=== PATIENT | male | born 1970 | race Caucasian/White ===

== ENCOUNTER → 2019-04-26 14:21 | Outpatient (CLI) | payer OTHER, SELFPAY ==
--- NOTE | 2019-04-26 14:26 | US_ITS ---
PROCEDURE: US THYROID CLINICAL INDICATION: THYROID NODULE Enlarged thyroid gland COMPARISON: No exams were available for comparison FINDINGS: Right lobe: 4.5 x 1.6 x 2 cm Left lobe: 4.3 x 1.7 x 2.1 cm Isthmus: Thickened at 7 mm Additional findings: Homogeneous echogenicity. No discrete nodule is evident IMPRESSION: Enlarged thyroid gland. No discrete nodule apparent Dictated by: Kenan Bella MD 04/26/2019 16:37 Electronically signed by Kenan Bella MD in [place] 04/26/2019 16:37
== END ==
PROVIDERS: PCP Family Medicine; Visit Provider Nurse Practitioner
DX: E04.1 Nontoxic single thyroid nodule (principal)
CPT/HCPCS: 76536

== ENCOUNTER → 2019-05-06 12:27 | Outpatient (CLI) | payer OTHER, SELFPAY | PROVIDERS: PCP Nurse Practitioner; Visit Provider Nurse Practitioner | DX: I10 Essential (primary) hypertension; R06.83 Snoring; G47.33 Obstructive sleep apnea (adult) (pediatric) | CPT/HCPCS: 95806 ==

== ENCOUNTER → 2019-09-23 16:53 | Outpatient (CLI) | payer OTHER, SELFPAY ==
--- NOTE | 2019-09-23 | CT_ITS ---
PROCEDURE: CT ABDOMEN PELVIS WO CON CLINICAL INDICATION: Hematuria, low back pain COMPARISON: ABWWO CT ABD W/WO CONTRAST from 10/10/2015 TECHNIQUE: Axial images obtained with sagittal and coronal reformats. All CT scans at the facility use one or more dose reduction, viz: automated exposure control, ma/kV adjustment per patient size (including targeted exams where dose is matched to indication, i.e. head), or iterative reconstruction technique. FINDINGS: LOWER THORAX: No acute finding ABDOMEN & PELVIS: The liver, spleen, adrenal glands, and pancreas have unremarkable appearance. There is some slight increased density of the gallbladder which could be related underlying sludge and/or stones. There is a 3.6 cm right renal cyst. No renal or ureteral calculi. No hydronephrosis. Urinary bladder is contracted with slightly thickened wall. There are few small peripancreatic and periportal lymph nodes. No evidence of appendicitis. There are few colonic diverticula but no evidence of diverticulitis. No abnormal fluid collection. No acute bony findings. IMPRESSION: 1. No acute finding. No renal or ureteral calculi. 2. 3.6 cm right renal cyst 3. Slight increased density of the gallbladder posteriorly which could be due to underlying sludge or small non opaque stones and may better be evaluated with gallbladder ultrasound if clinically warranted Dictated by: Kenan Bella MD 09/23/2019 17:18 Electronically signed by Kenan Bella MD in [place] 09/23/2019 17:18
== END ==
PROVIDERS: PCP Family Medicine; Visit Provider Family Medicine
DX: R10.9 Unspecified abdominal pain (principal); R31.0 Gross hematuria; M54.5 Low back pain
CPT/HCPCS: 74176

== ENCOUNTER → 2020-10-24 12:47 | Outpatient (CLI) | payer OTHER, SELFPAY ==
--- NOTE | 2020-10-24 13:21 | XR_ITS ---
PROCEDURE: XR CHEST PORTABLE CLINICAL HISTORY: COVID TESTING COMPARISON: No exams were available for comparison FINDINGS: The cardiomediastinal silhouette and pulmonary vascularity are within normal limits. There is patchy density in the left lung base medially. This could be due to an area of pericardial fat pad or patchy area of infiltrate. No previous exams are available for comparison. The remaining lungs are clear No acute bony abnormalities. IMPRESSION: Patchy density left lung base which may be due to an area ground-glass infiltrate or pericardial fat. Consider follow-up Dictated by: Kenan Bella MD 10/24/2020 14:25 Kenan Bella MD in [place] 10/24/2020 14:25
[2020-10-24 14:32] LABS: Adenovirus,PCR Not Detected (NotDetected); Bordetella Pertussis Not Detected (NotDetected); Chlamydophila Pneumoniae, PCR Not Detected (NotDetected); Coronavirus 19, PCR Not Detected (NotDetected); Coronavirus 229E Not Detected (NotDetected); Coronavirus NL63 Not Detected (NotDetected); Coronavirus OC43 Not Detected (NotDetected); Coronovirus HKU1,PCR Not Detected (NotDetected); Human Metapneumovirus Not Detected (NotDetected); Influenza A, PCR Not Detected (NotDetected); Influenza AH1, 2009 Not Detected (NotDetected); Influenza AH1, PCR Not Detected (NotDetected); Influenza AH3,PCR Not Detected (NotDetected); Influenza B, PCR Not Detected (NotDetected); Mycoplasma Pneumoniae, PCR Not Detected (NotDetected); Parainfluenza 1, PCR Not Detected (NotDetected); Parainfluenza 2, PCR Not Detected (NotDetected); Parainfluenza 3, PCR Not Detected (NotDetected); Parainfluenza 4, PCR Not Detected (NotDetected); Rhinovirus/Enterovirus Not Detected (NotDetected)
[2020-10-24 14:47] LABS: Basophils # 0.1 K/mm3 (0-0.2); Basophils % 0.9 % (0.1-2.0); Eosinophils # 0.2 K/mm3 (0.0-0.4); Eosinophils % 2.3 % (0.1-12.0); Hematocrit 49.4 % (42.0-52.0); Hemoglobin 16.7 g/dL (14.1-18.0); Lymphocytes # 2.8 K/mm3 (0.7-4.5); Lymphocytes % 30.1 % (10-50); Mean Corpuscular HGB Conc 33.8 g/dL (31.8-35.4); Mean Corpuscular Volume 97.5 fl (80-94); Mean Platelet Volume 8.2 fl (7.4-10.4); Monocytes # 0.5 K/mm3 (0.1-1.0); Monocytes % 5.3 % (1.7-9.3); Neutrophils # 5.8 K/mm3 (1.8-7.8); Neutrophils % 61.3 % (37.0-80.0); Platelet Count 282 K/mm3 (142-424); Red Blood Count 5.07 M/mm3 (4.60-6.20); Red Cell Distribution Width 13.4 % (11.5-17.5); White Blood Count 9.4 K/mm3 (4.8-10.8)
[2020-10-24 15:02] LABS: Strep Scrn Group A (Rapid) Negative (Negative)
[2020-10-24 20:45] LABS: Respiratory Syncytial Virus Detected (NotDetected)
== END ==
PROVIDERS: PCP Nurse Practitioner; Visit Provider Nurse Practitioner
DX: Z20.822 Contact with and (suspected) exposure to COVID-19 (principal); B97.4 Respiratory syncytial virus as the cause of diseases classified elsewhere
CPT/HCPCS: 36415; 71045; 85025; 87430; 87581; 87633; 87798

== ENCOUNTER → 2022-04-19 20:41 | Outpatient (CLI) | payer OTHER, SELFPAY ==
[2022-04-19 21:08] LABS: Influenza A, PCR Not Detected (NotDetected); Influenza B, PCR Not Detected (NotDetected)
[2022-04-19 21:23] LABS: Chloride 107 mmol/L (98-107); Potassium 3.8 mmoL/L (3.5-5.1); Sodium 143 mmol/L (136-145)
[2022-04-19 21:26] LABS: Anion Gap 8.8 mEq/L (5-15); Blood Urea Nitrogen 9 mg/dl (9-20); Calcium 9.4 mg/dl (8.4-10.2); Carbon Dioxide 31 mmol/L (22.0-30.0); Estimated Glomerular Filt Rate 79 ml/min (>60); GFR (African American) 96 ML/MIN (>60); Glucose 101 mg/dl (74-100)
[2022-04-19 21:59] LABS: Coronavirus 19, PCR Detected (NotDetected)
== END ==
PROVIDERS: PCP Nurse Practitioner; Visit Provider Nurse Practitioner
DX: U07.1 COVID-19 (principal); J06.9 Acute upper respiratory infection, unspecified
CPT/HCPCS: 36415; 80048; C9803; U0003; U0005

== ENCOUNTER → 2022-10-02 10:12 | Outpatient (CLI) | payer OTHER, SELFPAY ==
[2022-10-02 18:24] LABS: Alanine Aminotransferase 37 U/L (12-78); Albumin Level 4.6 g/dl (3.5-5.0); Albumin/Globulin Ratio 1.7 (1.1-1.8); Alkaline Phosphatase 65 U/L (38-126); Anion Gap 11.7 mEq/L (5-15); Aspartate Amino Transferase 43 U/L (17-59); Basophils # 0.1 K/mm3 (0-0.2); Basophils % 0.8 % (0.1-2.0); Bilirubin,Total 0.6 mg/dl (0.2-1.3); Blood Urea Nitrogen 10 mg/dl (9-20); Calcium 9.9 mg/dl (8.4-10.2); Carbon Dioxide 27 mmol/L (22.0-30.0); Chloride 107 mmol/L (98-107); Chol/HDL Ratio 6.3 (1-3.5); Cholesterol 250 mg/dl (140-200); Eosinophils # 0.3 K/mm3 (0.0-0.4); Estimated Glomerular Filt Rate 89 ml/min (>60); GFR (African American) 108 ML/MIN (>60); Globulin 2.7 g/dL (1.3-3.2); Glucose 93 mg/dl (74-100); HDL Cholesterol 40 mg/dl (40-60); Hematocrit 53.6 % (42.0-52.0); Hemoglobin 17.2 g/dL (14.1-18.0); Lymphocytes % 31.7 % (10-50); Mean Corpuscular HGB Conc 32.2 g/dL (31.8-35.4); Mean Corpuscular Hemoglobin 33.3 pg (27.0-31.2); Mean Corpuscular Volume 103.6 fl (80-94); Mean Platelet Volume 8.7 fl (7.4-10.4); Monocytes # 0.4 K/mm3 (0.1-1.0); Monocytes % 6.8 % (1.7-9.3); Neutrophils # 3.6 K/mm3 (1.8-7.8); Neutrophils % 56.7 % (37.0-80.0); Platelet Count 258 K/mm3 (142-424); Potassium 4.7 mmoL/L (3.5-5.1); Red Blood Count 5.17 M/mm3 (4.60-6.20); Red Cell Distribution Width 12.7 % (11.5-17.5); Sodium 141 mmol/L (136-145); Total Protein,Serum 7.3 g/dl (6.3-8.2); Triglycerides 243 mg/dl (30-150); VLDL Cholesterol 49 mg/dL (0-40); White Blood Count 6.4 K/mm3 (4.8-10.8)
[2022-10-02 18:36] LABS: Direct LDL Cholesterol 149.14 mg/dL (100-129)
[2022-10-02 18:45] LABS: 25-OH Vitamin D, Total 48.3 ng/mL (30-100)
[2022-10-02 18:55] LABS: Prostate Specific Ag Screen 0.4 ng/ml (0.0-4.0); Thyroid Stimulating Hormone 0.97 uIU/mL (0.465-4.68)
[2022-10-02 18:59] LABS: Hemoglobin A1C 5.3 % (4.0-6.0)
[2022-10-02 19:14] LABS: Vitamin B12 349 pg/mL (239-931)
== END ==
PROVIDERS: PCP Nurse Practitioner; Visit Provider Nurse Practitioner
DX: R07.9 Chest pain, unspecified (principal); K21.9 Gastro-esophageal reflux disease without esophagitis; Z12.5 Encounter for screening for malignant neoplasm of prostate; Z13.1 Encounter for screening for diabetes mellitus; Z13.21 Encounter for screening for nutritional disorder; Z13.220 Encounter for screening for lipoid disorders; G47.33 Obstructive sleep apnea (adult) (pediatric)
CPT/HCPCS: 80053; 80061; 82306; 82607; 83036; 84443; 85025; G0103

== ENCOUNTER → 2022-10-14 10:38 | Outpatient (CLI) | payer OTHER, SELFPAY ==
--- NOTE | 2022-10-14 10:58 | CT_ITS ---
FINAL REPORT CLINICAL HISTORY: lung cancer screening smokes 1 pk per day x 30 yrs FINDINGS: Low-Dose Chest CT CTDI vol (mGy): 2.9 DLP (mGy-cm): 114.64 Axial images were obtained from the lung apex to the mid abdomen by computed tomography. Low-dose protocol was utilized. FINDINGS: CHEST: There is no axillary adenopathy. There is no hilar or mediastinal adenopathy. The heart is proper size. There is no pericardial or pleural effusion. Limited images of the upper abdomen demonstrate a partially imaged right renal mass measuring 35 mm that may represent a cyst. Lung window images demonstrate several calcified granulomas in the right lung. There is no suspicious pulmonary nodule or mass. IMPRESSION: S-modifier: Partially imaged right renal mass may represent a cyst. Consider ultrasound or renal mass protocol CT. Lung RADS category 1S. Recommend 12 month follow-up low-dose chest CT. Reviewed, Interpreted and Dictated by Roque Gomes III, MD Transcribed by Kash Ayers Authenticated and [facility]
--- NOTE | 2022-10-14 10:58 | XR_ITS ---
FINAL REPORT CLINICAL HISTORY: chest pain COMPARISON: 10/24/2020 FINDINGS: Two views of the chest were obtained. The heart size and pulmonary vascularity are within normal limits. The mediastinum is normal. No acute pulmonary abnormality is identified. There is no pneumothorax. The bony thorax is intact. IMPRESSION: No active cardiopulmonary disease. Reviewed, Interpreted and Dictated by Roque Gomes III, MD Transcribed by Karly Tobin Authenticated and . [facility]
--- NOTE | 2022-10-14 11:28 | ECG_ITS ---
APPROVED REPORT [place] Estimator: Conclusion Electronically signed by : Steph Hill, 10/14/2022 18:17:45
== END ==
PROVIDERS: PCP Nurse Practitioner; Visit Provider Nurse Practitioner
DX: Z87.891 Personal history of nicotine dependence (principal); Z12.2 Encounter for screening for malignant neoplasm of respiratory organs; R07.9 Chest pain, unspecified; G47.33 Obstructive sleep apnea (adult) (pediatric)
CPT/HCPCS: 71046; 71271; 93005; 95806

== ENCOUNTER → 2022-10-17 07:03 | Outpatient (CLI) | payer OTHER, SELFPAY ==
--- NOTE | 2022-10-17 07:04 | NM_ITS ---
APPROVED REPORT Exam: Nuclear Stress Test Indication: chest pain..soa Patient Location: Outpatient Stress Tech: Haritha Madsen [place] Tech:Cherelle Quijano GISELERosa RT(R)(N) Ht: 5 ft 9 in Wt: 195 lbs HR: 75 bpm BP: 131/100 mmHg BSA: 2.04 m2 TID: 0.96 BMI: 28.7 History: chest pain..soa Procedure: Patient exercised on Eagle protocol 6:00 minutes and sec, resting heart rate 75 bpm, resting blood pressure 131/100 mmHg, with exercise maximum heart rate achived was 154 bpm which is 91 % of the maximum predicted heart rate and blood pressure was 174/88 mmHg. Test was stopped due to fatigue. Patient denied any complaint of chest pain. Patient has poor exercise capacity, achieved 7.0 METs of workload on treadmill, the blood pressure response to exercise was normal. Cardiac Stress and Resting SPECT Images: Cardiac Stress and Resting SPECT images were obtained using technetium 99m Myoview 31.6 mCi stress and 10.83 mCi at rest. Resting and stress imaging in both supine and prone positions demonstrate a large-sized, moderate, reversible perfusion defect in the inferior and inferoseptal LV tavarez from the base and extending distally towards the inferoapical region. Gated imaging demonstrates low-normal global LV systolic function. There is moderate hypokinesis of the inferior and inferoseptal LV tavarez. LVEF is calculated at 52%. Conclusion: Large-sized, moderate, reversible perfusion defect in the inferior and inferoseptal LV tavarez from the base and extending distally towards the inferoapical region. Findings are suggestive of reversible ischemia. Gated imaging demonstrates low-normal global LV systolic function. There is moderate hypokinesis of the inferior and inferoseptal LV tavarez. LVEF is calculated at 52%. Electronically signed by : Steph Hill, 10/19/2022 15:08:19
--- NOTE | 2022-10-17 10:11 | CA_ITS ---
APPROVED REPORT Exam: Exercise Treadmill Technologist: Haritha Lorenzo, Ht: 5 ft 10 in Wt: 195 lbs BSA: 2.07 m2 HR: 72 bpm BP: 143/91 mmHg Rhythm: NSR Medical History Medications: Omeprazole,,,,, Stress Test Details Test: Eagle HR Resting HR: 75 bpm Max Heart Rate (APMHR): 170 bpm Max HR Achieved: 154 bpm Target HR (85% APMHR): 145 bpm % of APMHR: 91 Recovery HR: 100 bpm HR response to stress: Normal HR response to stress BP Resting BP: 131.0/100 mmHg Max BP: 174/88 mmHg Recovery BP: 125.0/74.0 mmHg BP response to stress: Normal blood pressure response to stress. ECG Resting ECG: NSR, ST-T abnormalities inferolaterally Stress ECG: Pseudo-normalization of baseline abns with normal ST response to exercise Arrhythmia: None Recovery ECG: Return to baseline within 3 minutes or recovery Clinical Exercise duration: 06:00 min Highest Stage Achieved: II Exercise capacity: 7.0 METs Overall Exercise Capacity for Age: Poor Stress ECG Conclusion The patient was able to exercise for a total of 6:00 on Eagle Protocol. He achieved a total of 7 METs. He has a poor exercise capacity compared to age and sex matched peers. He has normal BP and HR response to exercise. Max HR: 154 % of PM: 91% Max BP: 174/88 METs: 7.0 Test stopped due to: SOA, leg fatigue Symptoms: SOA, leg faitgue. No CP. Arrhythmias/Ectopy: None ST-T Changes: Pseudo-normalization of baseline abns with normal ST response to exercise. Return of baseline abns in recovery. Conclusion: Poor exercise capacity. Non-diagnostic GXT due to baseline abnormalities. Myoview images reported separately. Test Summary REST . . . . . . . Sitting REST . . . . . . . Standing REST . . . . . . . Standing REST 03:14 0.0 0.0 75 . 131/100 . . Stage 1 01:00 10.0 1.7 105 . . . . Stage 1 02:00 10.0 1.7 117 . . . . Stage 1 03:00 10.0 1.7 123 . 174/ 88 . . Stage 2 01:00 12.0 2.5 133 . . . . Stage 2 02:00 12.0 2.5 144 . . . . Stage 2 03:00 12.0 2.5 153 . . . Stop exercise at 06:00 RECOVERY 01:00 0.0 0.0 140 . . . . RECOVERY 02:00 0.0 0.0 117 . 167/ 80 . . RECOVERY 03:00 0.0 0.0 104 . 160/ 77 . . RECOVERY 04:00 0.0 0.0 102 . 160/ 77 . . RECOVERY 05:00 0.0 0.0 99 . 125/ 74 . . RECOVERY 05:17 0.0 0.0 98 . 125/ 74 . . Electronically signed by : Steph Hill, 10/19/2022 15:05:13
== END ==
LOC: RAD 07:04
PROVIDERS: PCP Nurse Practitioner; Visit Provider Nurse Practitioner
DX: R07.9 Chest pain, unspecified (principal)
CPT/HCPCS: 78452; 93017; A9502

== ENCOUNTER → 2022-10-27 09:11 | Outpatient (CLI) | payer OTHER, SELFPAY ==
--- NOTE | 2022-10-27 09:16 | CT_ITS ---
FINAL REPORT TECHNIQUE: Axial imaging of the abdomen was obtained after the intravenous administration of contrast. This study was performed with techniques to keep radiation doses as low as reasonably achievable (ALARA). Individualized dose reduction techniques using automated exposure control or adjustment of mA and/or kV according to the patient's size were employed. CLINICAL HISTORY: neoplasm of right kidney COMPARISON: 09/23/2019 FINDINGS: The lung bases are clear. The liver has an unremarkable appearance, without evidence of mass. The gallbladder appears normal without evidence of gallstones. There is no evidence of biliary ductal dilatation. The pancreas appears normal. The spleen size is within normal limits. There is a 14 mm mass in the upper pole of the right kidney which previously measured 12 mm. There is also a 39 mm posterior right renal mass which previously measured 33 mm. These do not demonstrate contrast enhancement and have imaging characteristic consistent with cysts. There is no hydronephrosis. A small umbilical hernia seen containing fat. Appendix is normal. There is no evidence of adenopathy. No abnormal fluid collection is seen. No localized inflammatory processes identified. IMPRESSION: Right renal masses, increased in size from prior exam without contrast enhancement and appearance most consistent with cysts. Reviewed, Interpreted and Dictated by Roque Gomes III, MD Transcribed by Delphine Howard Authenticated and [facility]
== END ==
LOC: RAD 09:12
PROVIDERS: PCP Nurse Practitioner; Visit Provider Nurse Practitioner
DX: D41.01 Neoplasm of uncertain behavior of right kidney (principal)
CPT/HCPCS: 74170; Q9967

== ENCOUNTER 2022-11-05 08:09 | Day surgery (SDC) | payer OTHER, SELFPAY ==
[2022-11-05] VITALS (11 sets, daily range): BP systolic 103–123; BP diastolic 46–86; PULSE 55–75; RESP 17–20; O2SAT 90–98; BMI 26.9
--- NOTE | 2022-11-05 07:05 | IR_ITS ---
APPROVED REPORT Patient Location: Outpatient PROCEDURES Left heart catheterization Left ventriculogram Selective coronary angiogram INDICATION Angina pectoris, Abnormal Myoview, Informed consent was obtained prior to the procedure. COMPLICATIONS None Estimated Blood Loss: Less than 10 mls TECHNIQUE One percent lidocaine used to anesthetize the right anterior aspect of the wrist. The right radial artery was accessed via the Seldinger technique. A 6 Mongolian sheath was placed in the right radial artery. 2.5 mg of Verapamil, 800 mcg of nitroglycerin, 1mg Lidocaine and 5000 U Heparin were given through the arterial sheath. The papa catheter was also used to perform left heart catheterization, left ventriculogram and selective coronary angiogram. At the end of the procedure the sheath was removed good hemostasis was achieved using Traclet band, patient was transferred to the postop holding area in stable condition. ANGIOGRAPHIC RESULTS The left main artery Normal The left anterior descending artery Initially had JF I to JF II flow which improved with subsequent angiographic injections. The proximal portion is normal with remaining LAD being being a small vessel which does not supply the apex. There is no focal stenosis in the LAD itself. The first diagonal artery is moderate and has a mid vessel smooth 30% stenosis along a tortuous bend The circumflex artery Is dominant gives rise to a large ramus intermedius which is normal. The circumflex artery itself has a mid vessel concentric 40 to 50% stenosis followed by an additional 30% stenosis. Initially JF II flow was present down the circumflex artery which improved with subsequent injections The right coronary artery Codominant and normal The MCNEAL ventriculogram reveals Normal 65% The left ventricular end-diastolic pressure Elevated at 20 mmHg IMPRESSION Angiographic evidence of endothelial dysfunction as described above which is the likely etiology for patient's angina Moderate disease in the mid circumflex artery as described above Normal ejection fraction Elevated LVEDP PLAN 1. Recommend treatment of endothelial dysfunction which is almost certainly the etiology for patient's angina 2. Patient is only on 1 antianginal medication. Recommend adding additional antianginal medications 3. Medical management for coronary artery disease 4. LDL less than 55 to be achieved with high intensity statin 5. Avoidance of tobacco products Electronically signed by : Tristan Marcano MD 11/05/2022 11:02:29
[2022-11-05 08:51] LABS: Basophils # 0.1 K/mm3 (0-0.2); Basophils % 0.9 % (0.1-2.0); Eosinophils # 0.3 K/mm3 (0.0-0.4); Eosinophils % 4.3 % (0.1-12.0); Hematocrit 53.9 % (42.0-52.0); Hemoglobin 17.4 g/dL (14.1-18.0); Lymphocytes # 2.2 K/mm3 (0.7-4.5); Lymphocytes % 28.8 % (10-50); Mean Corpuscular HGB Conc 32.4 g/dL (31.8-35.4); Mean Corpuscular Hemoglobin 32.7 pg (27.0-31.2); Mean Platelet Volume 7.6 fl (7.4-10.4); Monocytes # 0.5 K/mm3 (0.1-1.0); Neutrophils # 4.6 K/mm3 (1.8-7.8); Platelet Count 250 K/mm3 (142-424); Red Blood Count 5.34 M/mm3 (4.60-6.20); Red Cell Distribution Width 12.9 % (11.5-17.5); White Blood Count 7.7 K/mm3 (4.8-10.8)
[2022-11-05 09:01] LABS: Chloride 106 mmol/L (98-107); Sodium 140 mmol/L (136-145)
[2022-11-05 09:02] LABS: Potassium 4.1 mmoL/L (3.5-5.1)
[2022-11-05 09:04] LABS: Anion Gap 9.1 mEq/L (5-15); Blood Urea Nitrogen 10 mg/dl (9-20); Carbon Dioxide 29 mmol/L (22.0-30.0); Creatinine Clearance Estimated 118 mL/min (50-200); Estimated Glomerular Filt Rate 89 ml/min (>60); GFR (African American) 108 ML/MIN (>60)
[2022-11-05 09:05] LABS: Calcium 9.7 mg/dl (8.4-10.2); Glucose 102 mg/dl (74-100)
== END 2022-11-05 13:52 | disposition home or self-care (01) ==
PROVIDERS: PCP Nurse Practitioner; Visit Provider Internal Medicine
DX: I25.118 Atherosclerotic heart disease of native coronary artery with other forms of angina pectoris (principal); R94.30 Abnormal result of cardiovascular function study, unspecified; E78.5 Hyperlipidemia, unspecified; R00.0 Tachycardia, unspecified; F17.210 Nicotine dependence, cigarettes, uncomplicated
CPT/HCPCS: 80048; 85025; 93458; 99152; C1725; C1769; J1644; Q9967

== ENCOUNTER → 2022-12-03 09:07 | Outpatient (CLI) | payer OTHER, SELFPAY ==
--- NOTE | 2022-12-03 09:07 | CT_ITS ---
FINAL REPORT TECHNIQUE: The patient was injected with IV contrast. Axial images were obtained through the chest in a PE protocol. 3-D reconstruction images were also performed. Individualized dose reduction techniques using automated exposure control or adjustment of the MA and/or KV according to patient's size were employed. CLINICAL HISTORY: to rule out aneursym FINDINGS: Mediastinal vasculature is adequately opacified. No pulmonary artery filling defects are identified to suggest PE. The ascending aorta measures up to 3.2 cm in diameter. No aneurysmal dilatation is identified. There is no axillary adenopathy. There is no hilar or mediastinal adenopathy. The heart size is normal. There is no pericardial or pleural effusion .No suspicious infiltrate or nodule is identified. IMPRESSION: No aneurysmal dilatation of the ascending aorta. Reviewed, Interpreted and Dictated by Ovi Butt MD Transcribed by Melissa Fernandez Authenticated and [facility]
== END ==
LOC: RAD 09:07
PROVIDERS: PCP Nurse Practitioner; Visit Provider Physician Assistant
DX: I25.10 Atherosclerotic heart disease of native coronary artery without angina pectoris (principal); E78.5 Hyperlipidemia, unspecified; F17.200 Nicotine dependence, unspecified, uncomplicated
CPT/HCPCS: 71275; Q9967

== ENCOUNTER 2023-03-11 11:58 | Day surgery (SDC) | payer OTHER, SELFPAY ==
[2023-01-14 14:20] VITALS: BMI 28.6
[2023-03-11 12:08] VITALS: BP 129/86; PULSE 70; RESP 20; TEMP 36.5; O2SAT 98
[2023-03-11] MEDS: LACTATED RINGERS 1000ML 1,000 ML 100 ML IV (12:15)
--- NOTE | 2023-03-11 12:21 | EXP.ANES.CKL ---
[facility] Disclaimer: The information contained in this section may have been updated after the patient was seen, as this information can be updated by other users. Medical History Abnormal result of cardiovascular function study Abnormal stress test Chest pain GERD (gastroesophageal reflux disease) History of left heart catheterization (LHC) History of left heart catheterization (LHC) Hyperlipidemia Neoplasm of uncertain behavior of right kidney ELENA (obstructive sleep apnea) Personal history of smoking Sinus tachycardia Surgical History Hx of inguinal hernia repair Family History Father Aneurysm Other Family history of diabetes mellitus type II Family history of hyperlipidemia Family history of hypertension Social History Smoking Status: Current every day smoker tobacco type: cigarettes packs per day: 1 alcohol intake: current substance use type: denies use current occupational status: employed Travel in the last 8 weeks: None household members: family housing: house caffeine: Yes [facility] Anesthesia Checklist Patient Identification Patient Identification: Arm Band Structural Data Admitted From: Home Planned Operative Procedure/s: EGD/Colonoscopy Consent for Planned Operative Procedure(s) Verified: Yes Verified Documents: Surgical Consent and History and Physical NPO Status Verified Time NPO: 00:00 Additional verifications Anesthesia Reactions: No Airway Assessment Mallampati Score:: Class II C-Spine Mobility Assessed: Yes TMJ Mobility Assessed: Yes Dentition: Good Dentition Neurological Assessment Level of Consciousness: Awake and Alert Anesthesia Plan Anesthesia Risk discussed: Yes Anesthesia Plan: Verified ASA Class: II Anesthesia Type: MAC
[2023-03-11 12:28] VITALS: O2SAT 97
[2023-03-11 12:55] VITALS: BP 112/64; PULSE 82; RESP 18; TEMP 36.4; O2SAT 94
--- NOTE | 2023-03-11 12:59 | HMH.SCOPE ---
Procedure: Date: 03/11/23 Patient Date of :: 1970 Procedure Performed:: Colonoscopy Indications:: Screening Performing Provider:: Dylan Traore MD Referring Provider:: Berta Mar APRN Sedation:: See RN records Procedure:: After placing the patient in the left lateral decubitus position, the colonoscopy was gently inserted into the rectum and under direct visualization advanced to the cecum which was identified by transillumination in the right lower quadrant, identification of the ileocecal valve, appendiceal orifice, and cecal strap. Color, texture, mucosa, and anatomy of the colon were carefully examined with the scope. Findings:: Anal canal: normal Rectum: Hemorrhoids Sigmoid colon: normal without polyps or inflammatory changes Descending colon: normal without polyps or inflammatory changes Splenic flexure: normal Transverse colon: normal without polyps or inflammatory changes Hepatic flexure: normal Ascending colon: normal without polyps or inflammatory changes Cecum: normal Terminal ileum: not visualized Recommendations:: Repeat colonoscopy in 10 years for screening, sooner if clinically indicated Complications:: none Estimated blood obtained (mL): 0 Colonoscopy Component Colonoscopy Component Was a colonoscopy performed during today's procedure?: Yes Recommended follow up colonoscopy of at least 10 years?: Yes
--- NOTE | 2023-03-11 13:00 | P.PCN_ITS ---
Procedure: Date: 03/11/23 Patient Date of :: 1970 Procedure Performed:: EGD Indications:: Ray's esophagus Performing Provider:: Dylan Traore MD Referring Provider:: Marli Cardozo APRN (Gastroenterology) Sedation:: See RN records Procedure:: The gastroscope was gently passed through the incisoral orifice into the oral cavity and under direct visualization the esophagus was intubated. The endoscope was passed down the esophagus, through the stomach, and into the duodenum. Color, texture, mucosa, and anatomy of the esophagus, stomach, and duodenum were carefully examined with the scope. Findings:: Oropharynx: normal Esophagus: Ray's esophagus. [place] Classification C4M5. Multiple biopsies obtained in 4 quadrant fashion EG Junction: meaured at 40 cm Cardia: normal Fundus: normal Body: normal Antrum: normal Duodenal bulb: normal Duodenum (second and third portion): normal Impression: Ray's esophagus. [place] Classification C4M5 Recommendations:: Await pathology results Continue omeprazole 40 mg once daily Recommend cigarette smoking cessation Repeat EGD in 3 years Complications:: None Estimated blood obtained (mL): 0 Colonoscopy Component Colonoscopy Component Was a colonoscopy performed during today's procedure?: No
[2023-03-11 13:05] VITALS: BP 113/66; PULSE 67; RESP 18; O2SAT 98
[2023-03-11 13:10] VITALS: BP 114/85; PULSE 65; RESP 18; O2SAT 98
[2023-03-11 13:39] VITALS: BP 128/85; PULSE 65; RESP 18; O2SAT 98
== END 2023-03-11 13:49 | disposition home or self-care (01) ==
PROVIDERS: PCP Nurse Practitioner; Visit Provider Internal Medicine
PROC: 0DJ08ZZ Inspection of Upper Intestinal Tract, Via Natural or Artificial Opening Endoscopic (ICD-10-PCS; CPT 43235; principal; 2023-03-11 13:00)
DX: K22.70 Barrett's esophagus without dysplasia (principal); Z12.11 Encounter for screening for malignant neoplasm of colon; K64.8 Other hemorrhoids; K31.A0 Gastric intestinal metaplasia, unspecified
CPT/HCPCS: 43239; 45378

== ENCOUNTER 2024-01-27 11:23 | Outpatient (CLI) | payer OTHER, SELFPAY ==
[2024-01-27 18:39] LABS: Basophils # 0.1 K/mm3 (0-0.2); Basophils % 1.3 % (0.1-2.0); Eosinophils # 0.2 K/mm3 (0.0-0.4); Eosinophils % 3.2 % (0.1-12.0); Hematocrit 52.3 % (42.0-52.0); Hemoglobin 17.1 g/dL (14.1-18.0); Lymphocytes # 1.7 K/mm3 (0.7-4.5); Lymphocytes % 26.9 % (10-50); Mean Corpuscular HGB Conc 32.7 g/dL (31.8-35.4); Mean Corpuscular Hemoglobin 33.8 pg (27.0-31.2); Mean Corpuscular Volume 103.2 fl (80-94); Mean Platelet Volume 8.7 fl (7.4-10.4); Monocytes # 0.5 K/mm3 (0.1-1.0); Monocytes % 8.1 % (1.7-9.3); Neutrophils # 3.8 K/mm3 (1.8-7.8); Neutrophils % 60.6 % (37.0-80.0); Platelet Count 255 K/mm3 (142-424); Red Blood Count 5.07 M/mm3 (4.60-6.20); Red Cell Distribution Width 12.9 % (11.5-17.5); White Blood Count 6.3 K/mm3 (4.8-10.8)
[2024-01-27 19:00] LABS: Alanine Aminotransferase 43 U/L (12-78); Albumin Level 4.4 g/dl (3.5-5.0); Albumin/Globulin Ratio 1.8 (1.1-1.8); Alkaline Phosphatase 61 U/L (38-126); Anion Gap 11.3 mEq/L (5-15); Aspartate Amino Transferase 40 U/L (17-59); Bilirubin,Total 0.5 mg/dl (0.2-1.3); Blood Urea Nitrogen 8 mg/dl (9-20); Calcium 9.7 mg/dl (8.4-10.2); Carbon Dioxide 29 mmol/L (22.0-30.0); Chloride 106 mmol/L (98-107); Chol/HDL Ratio 4.5 (1-3.5); Cholesterol 175 mg/dl (140-200); Estimated Glomerular Filt Rate 89 ml/min (>60); GFR (African American) 108 ML/MIN (>60); Globulin 2.4 g/dL (1.3-3.2); Glucose 77 mg/dl (74-100); HDL Cholesterol 39 mg/dl (40-60); Potassium 4.3 mmoL/L (3.5-5.1); Sodium 142 mmol/L (136-145); Total Protein,Serum 6.8 g/dl (6.3-8.2); Triglycerides 289 mg/dl (30-150); VLDL Cholesterol 58 mg/dL (0-40)
[2024-01-27 19:29] LABS: Prostate Specific Ag Screen 0.3 ng/ml (0.0-4.0); Thyroid Stimulating Hormone 2.07 uIU/mL (0.465-4.68)
[2024-01-27 19:48] LABS: Vitamin B12 236 pg/mL (239-931)
[2024-01-27 19:56] LABS: Hemoglobin A1C 6.2 % (4.0-6.0)
== END 2024-01-27 23:59 | disposition home or self-care (01) ==
LOC: LAB.DROPOF 01-28 15:23
PROVIDERS: PCP Nurse Practitioner; Visit Provider Nurse Practitioner
DX: E78.5 Hyperlipidemia, unspecified (principal); K21.9 Gastro-esophageal reflux disease without esophagitis; G47.33 Obstructive sleep apnea (adult) (pediatric); R60.0 Localized edema; Z13.1 Encounter for screening for diabetes mellitus; Z13.29 Encounter for screening for other suspected endocrine disorder
CPT/HCPCS: 80050; 80053; 80061; 82607; 83036; 84443; 85025; G0103

== ENCOUNTER 2024-02-01 12:51 | Outpatient (CLI) | payer OTHER, SELFPAY ==
--- NOTE | 2024-02-01 12:57 | CA_ITS ---
APPROVED REPORT EXAM: Comprehensive 2D, Doppler, and color-flow Echocardiogram Lurer: Louann Leon CRT Ht: 5 ft 10 in Wt: 212lbs BSA: 2.14 BP: 118/84 mmHg Indications: Peripheral Edema, Hyperlipidemia, smoker, abn gxt, tachycardia 2D Dimensions LA Volume 28.40 mL LA Volume Index 13.27 mL/m2 (M/F) 16-34 M-Mode Dimensions RVDd 2.60 cm (0.9-2.6) LA Diam 3.14 cm (1.9-4.0) LVDd 5.53 cm (3.5-5.7) LVDs 3.82 cm (3.5-5.7) IVSd 1.21 cm (0.6-1.1) PWd 0.78 cm (0.6-1.1) EF (Teich) 58.00% FS 30.90% EDV (Teich) 149.30 mL TAPSE 2.18 (<1.7) ESV (Teich) 62.70 mL LV Diastology E Decel Time 137 (160-240 msec) E/A Ratio 1.03 MED A' 8.60 cm/s LAT A' 8.50 cm/s Aortic Valve AO Peak GR. 4.40 mmHg Mitral Valve MV A Velocity 50.0 (40-130 cm/s) E/A Ratio 1.03 Pulmonary Valve PV Peak Velocity 128.0 (50-150 cm/s) Tricuspid Valve TR P. Velocity 174.00 cm/s RAP Estimate 10.00 mmHg RVSP 22.20 mmHg Left Ventricle The left ventricle is normal size. The left ventricular systolic function is normal. The left ventricular ejection fraction is within the normal range. There is normal left ventricular wall thickness. There is normal LV segmental wall motion. The left ventricular diastolic function is normal. LVEF is 55%. Right Ventricle Right ventricle is mildly dilated. The right ventricular systolic function is normal. Atria The left atrium size is normal. The right atrium size is normal. There is no Doppler evidence of interatrial shunt. The aortic valve opens well. Aortic Valve There is no aortic valvular stenosis. No aortic regurgitation is present. Mitral Valve The mitral valve is normal in structure. No evidence of mitral valve stenosis. There is no mitral valve regurgitation noted. Tricuspid Valve The tricuspid valve leaflets are thin and pliable. Trace tricuspid regurgitation. There is insufficient TR jet to estimate RVSP. Pulmonic Valve The pulmonary valve is normal in structure. Trace pulmonic regurgitation. Great Vessels The aortic root is normal in size. The ascending aorta is normal in size. IVC is normal in size and collapses >50% with inspiration. Pericardium There is no pericardial effusion. Other Information Study Quality: Adequate Conclusion Normal biventricular systolic function. Mild RV dilation. No significant valvular stenosis or regurgitation. Electronically signed by : Steph Hill MD 02/09/2024 11:37:41
== END 2024-02-01 23:59 | disposition home or self-care (01) ==
PROVIDERS: PCP Nurse Practitioner; Visit Provider Nurse Practitioner
DX: R60.0 Localized edema (principal)
CPT/HCPCS: 93306

== ENCOUNTER 2024-02-12 10:53 | Outpatient (CLI) | payer OTHER, SELFPAY ==
--- NOTE | 2024-02-12 10:54 | CT_ITS ---
FINAL REPORT TECHNIQUE: Axial CT images of the chest were obtained without contrast. Low-dose protocol was utilized. This study was performed with techniques to keep radiation doses as low as reasonably achievable (ALARA). Individualized dose reduction techniques using automated exposure control or adjustment of mA and/or kV according to the patient's size were employed. CLINICAL HISTORY: lung cancer screening, current smoker for 25 years, smokes less than 1ppd COMPARISON: 10/14/2022 FINDINGS: CT CHEST WITHOUT, LOW DOSE SCREENING CT Di Vol: 2.90 mGy DLP: 104.20 mGy*cm There is no axillary, mediastinal, or hilar adenopathy. The heart size is normal. There is no pleural or pericardial effusion. The lung windows show no suspicious mass or nodule. Limited images of the upper abdomen demonstrate an exophytic lesion arising from the upper pole of the right kidney, likely cyst. Otherwise, no acute findings. IMPRESSION: LR Category 1: 12 month follow-up low-dose chest CT is recommended per Fleischner criteria. Reviewed, Interpreted and Dictated by Amber Mishra MD Transcribed by Shauna Shields Authenticated and [facility]
== END 2024-02-12 23:59 | disposition home or self-care (01) ==
LOC: RAD 10:54
PROVIDERS: PCP Nurse Practitioner; Visit Provider Nurse Practitioner
DX: Z12.2 Encounter for screening for malignant neoplasm of respiratory organs (principal); F17.210 Nicotine dependence, cigarettes, uncomplicated
CPT/HCPCS: 71271

== ENCOUNTER 2024-10-24 10:31 | Outpatient (CLI) | payer OTHER, SELFPAY ==
[2024-10-24 15:12] LABS: Hematocrit 50.2 % (42.0-52.0); Hemoglobin 16.1 g/dL (14.1-18.0); Immature Granulocytes % 0.3 %; Mean Corpuscular HGB Conc 32.1 g/dL (31.8-35.4); Mean Corpuscular Hemoglobin 31.7 pg (27.0-31.2); Mean Corpuscular Volume 98.8 fl (80-94); Nucleated Red Blood Cells % 0 %; Platelet Count 280 K/mm3 (142-424); Red Blood Count 5.08 M/mm3 (4.60-6.20); Red Cell Distribution Width-SD 48.0 fL; White Blood Count 14.7 K/mm3 (4.8-10.8)
[2024-10-24 15:39] LABS: Alanine Aminotransferase 46 U/L (12-78); Albumin Level 4.4 g/dl (3.5-5.0); Albumin/Globulin Ratio 1.4 (1.1-1.8); Alkaline Phosphatase 75 U/L (38-126); Anion Gap 10.2 mEq/L (5-15); Aspartate Amino Transferase 49 U/L (17-59); Bilirubin,Total 0.8 mg/dl (0.2-1.3); Blood Urea Nitrogen 9 mg/dl (9-20); Calcium 9.5 mg/dl (8.4-10.2); Carbon Dioxide 30 mmol/L (22.0-30.0); Chloride 104 mmol/L (98-107); Cholesterol 164 mg/dl (140-200); Creatinine,Serum 0.80 mg/dl (0.66-1.25); Estimated Glomerular Filt Rate 102 ml/min (>60); GFR (African American) 123 ML/MIN (>60); Globulin 3.1 g/dL (1.3-3.2); Glucose 84 mg/dl (74-100); HDL Cholesterol 40 mg/dl (40-60); Potassium 4.2 mmoL/L (3.5-5.1); Sodium 140 mmol/L (136-145); Total Protein,Serum 7.5 g/dl (6.3-8.2); Triglycerides 196 mg/dl (30-150)
[2024-10-24 16:09] LABS: Prostate Specific Ag, Diagnost 0.286 ng/ml (0.0-4.0); Thyroid Stimulating Hormone 1.82 uIU/mL (0.465-4.68)
[2024-10-24 16:26] LABS: Hepatitis C Ab Qual. W/ RFX NEGATIVE (Negative)
[2024-10-24 16:33] LABS: Vitamin B12 > 1000 pg/mL (239-931)
[2024-10-24 21:46] LABS: Hemoglobin A1C 5.7 % (4.0-6.0)
[2024-10-25 05:12] LABS: Hepatitis B Surface Antigen Negative (Negative)
[2024-10-25 08:17] LABS: Testosterone,Total 238 ng/dL (264-916)
--- OUTSIDE RECORDS SUMMARY | 2024-10-25 10:49 | XMS_ITS | Clinical Summary ---
Author Organization [facility] Address [address] [place] [address] Care Team Providers Care Fur Joiner Name Role Phone Berta Mar CHIEF YEOMAN Primary Care Provider [phone] Allergies No known active allergies Medications albuterol 108 (90 Base) MCG/ACT inhaler Inhale 2 puffs every 4 (four) hours if needed for wheezing or shortness of breath. 1 each Active Social History Tobacco Use Types Packs/Day Years Used Date Smoking Tobacco: Never Assessed Sex and Gender Information Value Date Recorded Sex Assigned at Not on file Legal Sex Male 11:15 AM EDT Gender Identity Not on file Sexual Orientation Not on file Last Filed Vital Signs Vital Sign Reading Time Taken Comments Blood Pressure 122/80 01/11/2024 3:24 PM EDT Pulse 104 01/11/2024 3:24 PM EDT Temperature 36.8 C (98.2 F) 01/11/2024 3:24 PM EDT Respiratory Rate 18 01/11/2024 3:24 PM EDT Oxygen Saturation 95% 01/11/2024 3:24 PM EDT Inhaled Oxygen Concentration - - Weight 90.7 kg (200 lb) 01/11/2024 11:24 AM EDT Height - - Body Mass Index - - Plan of Treatment Health Maintenance Due Date Last Done Comments UKY-Depression Screening 1972 UKY-HIV Screening 1972 UKY-Hepatitis C Screening 1972 [facility]Y-/Child/Adol SDOH Screenings 1972 UKY- SDOH Screenings 02/07/1990 UKY-Adult SDOH Screenings 02/07/1990 UKY-Hepatitis B Vaccines (1 of 3 - 19+ 3-dose series) 02/07/1991 UKY-Pneumococcal Vaccine: 50 + Years (1 of 2 - PCV) 02/07/1991 CT Colonography 02/07/2017 Colonoscopy 02/07/2017 FIT-DNA 02/07/2017 FIT 02/07/2017 FOBT 02/07/2017 Sigmoidoscopy 02/07/2017 UKY-Colorectal Cancer Screening 02/07/2017 UKY-Zoster Vaccines (1 of 2) 02/07/2022 [id number]-OJEND-49 Vaccine (4 - season) 2023 02/25/2022, 06/12/2020, 05/15/2020 UKY-Influenza Vaccine (#1) 2024 UKY-DTaP,Tdap,and Td Vaccine s (2 - Td or Tdap) 11/26/2027 11/25/2017 UKY-Hepatitis A Vaccines Aged Out 019, 11/25/2017 No longer eligible based on patient's age to complete this topic HPV Vaccines Aged Out No longer eligi ble based on patient's age to complete this topic UKY-HIB Vaccines Aged Out No longer e ligible based on patient's age to complete this topic UKY-IPV Vaccines Aged Out No longer e ligible based on patient's age to complete this topic UKY-Rotavirus Vaccines Aged Out No lo nger eligible based on patient's age to complete this topic Insurance Care Teams Fur Joiner Relationship Specialty Start Date End Date Berta Mar APRN [address] [place] [address] PCP - General 01/11/24
--- OUTSIDE RECORDS SUMMARY | 2024-10-25 10:49 | XMS_ITS | Clinical Summary ---
Author Organization [facility] Address [address] [facility] [place] [address] [place] [address] Phone Care Team Providers Care Candle Wicker Name Role Phone Sandrita Arguello Primary Care Provider [phone] Allergies No known active allergies Medications methylPREDNISolo ne (MEDROL DOSPACK) 4 mg Oral Tablets, Dose PackIndications: Left knee pain, unspecified chronicity follow package directions 21 Tablet 3 Active Social History Tobacco Use Types Packs/Day Years Used Date Smoking Tobacco: Never Assessed Sex and Gender Information Value Date Recorded Sex Assigned at Not on file Legal Sex Male 7:36 AM EDT Gender Identity Not on file Sexual Orientation Not on file Plan of Treatment Health Maintenance Due Date Last Done Comments Annual Wellness Exam 02/07/1975 Hepatitis B Vaccine (1 of 3 - 19+ 3-dose series) 02/07/1991 Cologuard 02/07/2017 Colon Cancer Screening 02/07/2017 Colonoscopy 02/07/2017 FIT 02/07/2017 Sigmoidoscopy 02/07/2017 Virtual Colonography 02/07/2017 Pneumococcal Vaccine 50+ (1 of 1 - PCV) 02/07/2022 Zoster (1 of 2) 02/07/2022 COVID-19 Vaccine (2023-2 5 season) 2023 02/25/2022, 06/12/2020, 05/15/2020 Influenza Vaccine (#1) 2024 DTaP/TDaP/Td (2 - Td or Tdap) 11/26/2027 11/25/2017 Meningococcal B Vaccine Aged Out No l onger eligible based on patient's age to complete this topic Insurance wally [address] CHOICE PLUS CHOICE PLUS Care Teams Candle Wicker Relationship Specialty Start Date End Date Sandrita Arguello [address] [facility] [address] [facility] [address] PCP - General Family Medicine 10/06/14
== END 2024-10-24 23:59 | disposition home or self-care (01) ==
LOC: LAB.DROPOF 10-25 10:42
PROVIDERS: PCP Nurse Practitioner; Visit Provider Nurse Practitioner
DX: E78.5 Hyperlipidemia, unspecified (principal); K21.9 Gastro-esophageal reflux disease without esophagitis; R73.01 Impaired fasting glucose; Z12.5 Encounter for screening for malignant neoplasm of prostate; R68.82 Decreased libido; Z11.59 Encounter for screening for other viral diseases; Z80.42 Family history of malignant neoplasm of prostate; Z79.899 Other long term (current) drug therapy
CPT/HCPCS: 80053; 80061; 82607; 83036; 84153; 84403; 84443; 85025; 86803; 87340; 87389

== ENCOUNTER 2025-01-04 13:19 | Outpatient (CLI) | payer OTHER, SELFPAY ==
[2025-01-04 08:47] VITALS: BMI 30.1
--- NOTE | 2025-01-04 13:45 | XR_ITS ---
FINAL REPORT CLINICAL HISTORY: preoperative orders FINDINGS: No acute pulmonary density is evident. There is no evidence of effusion or other pleural disease. The mediastinum has a normal appearance. The cardiac silhouette is unremarkable. IMPRESSION: Unremarkable chest exam. Reviewed, Interpreted and Dictated by Frances Chou MD Transcribed by Melissa Fernandez Authenticated and [facility] [place] [place]
--- NOTE | 2025-01-04 14:04 | ECG_ITS ---
APPROVED REPORT Exam: Resting ECG HR:83 bpm ECG Measurements Heart Rate 83 AXES WY 146 P 52 QRSd 101 QRS 48 QT 375 T 58 QTc 415 Conclusion SINUS RHYTHM INCOMPLETE RIGHT BUNDLE BRANCH BLOCK [90+ ms QRS DURATION, TERMINAL R IN V1/V2, 40+ ms S IN I/aVL/V4/V5/V6] NONSPECIFIC T-WAVE ABNORMALITY BORDERLINE ECG UNCONFIRMED REPORT Electronically signed by : Ephraim Yuen MD 01/06/2025 08:49:11
--- OUTSIDE RECORDS SUMMARY | 2025-01-04 14:04 | XMS_ITS | Clinical Summary ---
Author Organization [facility] Address [facility] [place] [place] [address] [place] [address] Phone Care Team Providers Care Social Work Program Coordinator Name Role Phone Sandrita Arguello Primary Care Provider [phone] Allergies No known active allergies Medications methylPREDNISolo [...] Zoster (1 of 2) 02/07/2022 COVID-19 Vaccine (4 - 2024-2 6 season) 2024 02/25/2022, 06/12/2020, 05/15/2020 Influenza Vaccine (#1) 2024 DTaP/TDaP/Td (2 - Td or Tdap) 11/26/2027 11/25/2017 Meningococcal B Vaccine Aged Out No l onger eligible based on patient's age to complete this topic Insurance wally [address] CHOICE PLUS CHOICE PLUS Care Teams Social Work Program Coordinator Relationship Specialty Start Date End Date Sandrita Arguello [address] [facility] [address] [facility] [address] PCP - General Family Medicine 10/06/14
--- OUTSIDE RECORDS SUMMARY | 2025-01-04 14:04 | XMS_ITS | Clinical Summary ---
Author Organization [facility] Address [address] [place] [address] Care Team Providers Care Cheesemaking Laborer Name Role Phone Berta Mar CURTAIN INSPECTOR Primary Care Provider [phone] Allergies No known active allergies Medications albuterol [...] 02/07/2017 UKY-Zoster Vaccines (1 of 2) 02/07/2022 [id number] Vaccine (4 - season) 2024 02/25/2022, 06/12/2020, 05/15/2020 UKY-Influenza Vaccine (#1) 2024 [...] to complete this topic Insurance Care Teams Cheesemaking Laborer Relationship Specialty Start Date End Date Berta Mar APRN [address] [place] [address] PCP - General 01/11/24
--- OUTSIDE RECORDS SUMMARY | 2025-01-04 14:04 | XMS_ITS | Data Portability ---
Author Organization [facility] Address [address] [facility] [address] [place] [address] Assessment No assessment recorded. Plan of Treatment Reminders Order Date Submit Date Provider Last Modified By Organization Details Last Modified Time Details Appointments None recorded. Lab None recorded. Referral None recorded. Procedures None recorded. Surgeries None recorded. Imaging None recorded. Medication Orders acetaminoph en 300 mg-codeine 30 mg tablet 2022 023 [facility] 591, [address], [address], 14:44:54 Patient TargetsNo targets recorded. Patient Instructions Encounter Date Encounter Id Patient Instructions Last Modified By Organization Details Last Modified Time 10/27/2022 [id number] I discussed vasectomy in great detail with him(and his partner if present) today. I emphasized the permanence of the procedure of voluntary sterilization. We discussed the potential failure rate and it was made clear that it would be required to determine that 2 consecutive semen specimens examined in this office should show no evidence of sperm before the procedure be declared successful and the patient can safely proceed with unprotected intercourse. We did discuss all potential risks and complications inherent with scrotal surgery and with this procedure. Specific instructions were given regarding post operative care and activity. Written materials were given to him as well as an additional source of information regarding the procedure and its risk and benefits. All questions were answered. He stated that he had full understanding of all that was discussed and he desires to proceed. Not available 10/27/2022 20:50:27 Reason for Referral None Reported. Results Created Date Observation Date Name Description Value Unit Range Abnormal Flag Note LastModifiedBy Organization Detail LastModifiedTime 12/27/1912/26/2022 sperm count , semin al fluid (post vasec priyanka) Unknown Analyte Post Vas Specim en Not Available [facility] [place], [address], 12/26/2022 11:57:43 12/27/1912/26/2022 sperm count , semin al fluid (post vasec priyanka) Unknown Analyte Absent Not Available Cu/ [address] [place], [address], 12/26/2022 11:57:43 12/27/1912/26/2022 sperm count , semin al fluid (post vasec priyanka) Unknown Analyte Non-Mo tile Not Available Cu[facility] [address] [place], [address], 12/26/2022 11:57:43 Result Notes None recorded. Procedures Surgical History Date Name Laterality Status Provider Name and Address Organization Details Recorded Time 3 Vasectomy completed MILLICENT BOLTON MD [address] [place] [address], [phone], [facility] 10/31/2022 14:43:40 3 Vasectomy completed MILLICENT BOLTON MD [address] [place] [address], [phone], [facility] 11/15/2022 13:05:24 Hernia Repair completed MILLICENT BOLTON MD [address] [place] [address], [phone], [facility] 10/27/2022 20:48:46 Imaging Results None recorded. Procedure Notes None recorded. Medical Equipment None Reported. Allergies No known drug allergies Medications Name Sig Start Date Stop Date Status Note LastModified by Organization Details LastModified Time acetaminoph en 300 mg-codeine 30 mg tablet Take 1 tablet every 6 hours by oral route as needed. active Not Available Not Available No t Available omeprazole 40 mg capsule,del ayed release TAKE 1 CAPSULE BY MOUTH ONCE DAILY active Not Available Not Available No t Available metoprolol succinate ER 25 mg tablet,exte nded release 24 hr TAKE 1 TABLET BY MOUTH ONCE DAILY. active Not Available Not Available No t Available rosuvastati n 10 mg tablet TAKE 1 TABLET BY MOUTH ONCE DAILY. active Not Available Not Available No t Available varenicline tartrate 0.5 mg (11)-1 mg (42) tablets in a dose pack TAKE 0.5MG TABLET DAILY FOR 3 DAYS, THEN 0.5MG TABLET 2 TIMES DAILY FOR 4 DAYS, THEN 1MG TABLET 2 TIMES DAILY THEREAFTE R active Not Available Not Available No t Available Paxlovid 300 mg (150 mg x 2)-100 mg tablets in a dose pack TAKE 3 TABLETS TOGETHER (TWO 150 MG NIRMATREL VIR TABLETS AND ONE 100 MG RITONAVIR TABLET) BY MOUTH TWICE DAILY FOR 5 DAYS. 10/27 completed Not Available Not Available Not Available Vitals Date Recorded Body height Body mass index (BMI) Body weight Provider Name and Address Organization Details Last Updated DateTime 10/27/2022 175.26 cm 27.3 kg/m2 28556.59 g Angelica Curry [facility] 10/27/2022 14:46:07 Date Recorded Body height Body mass index (BMI) Body weight Provider Name and Address Organization Details Last Updated DateTime 11/14/2022 175.26 cm 27.3 kg/m2 80205.59 g Angelicaalee Curry [facility] 11/14/2022 10:49:42 Social History Question Answer Notes LastModified by eBuilder Details LastModified Time Tobacco Smoking Status Current Every Day Smoker Angelica Curry [facility] 10/27/2022 14:47:22 What Is Your Relationship Status? Is 38 G0. 28 Yo Son And 2 Grandchil dren. Information not available 10/27/2022 How Much Tobacco Do You Smoke? 1 PPD Information not available 10/27/2022 Sex: Unknown Functional Status Question Answer Note LastModified by eBuilder Details LastModified Time What is your level of alcohol consumption? Occasional Information not available 10/27/2022 Are you currently employed? Yes Information not available 10/27/2022 What is your occupation? [employer] Information not available 10/27/2022 Mental Status None recorded. Family History Relationship Description Onset Age of this Age Resolved Age Notes LastModified by Organization Details LastModified Time Father Diabetes [email or web address] Not available 2022 14:46:44 Paternal Grandfather Family history of malignant neoplasm [email or web address] Not available 2022 14:46:52 Medical History Condition Response Allergies/Hayfever Y Acid Reflux (GERD) Y Arthritis Y Kidney Stones Y Sleep Apnea Y High Cholesterol Y Past Encounters Encounter ID Performer Location Encounter Start Date Encounter Closed Date Diagnosis/Indication Diagnosis SNOMED-CT Code Diagnosis ICD10 Code Diagnosis IMO Codes Diagnosis Note [id number] [facility]ILLICENT [facility]OLTON [facility] [address] [facility] [place] [address] 10/27/2022 12:47:27 10/27/2022 15:28:24 Male sterilization 316784332 Z30.2 [id number] MILLICENT BOLTON MD SURGERY SCHEDULE [address] [place] [phone] 10/31/2022 13:28:18 10/31/2022 13:31:02 Male sterilization [id number] Z30.2 [id number] MILLICENT BOLTON [facility] [address] [facility] [place] [address] 11/14/2022 10:33:08 11/14/2022 12:26:13 Male sterilization [id number] Z30.2 Looks great post-op Health Concerns Section Related Observation LastModified by Organization Detai ls LastModified Time None Recorded Concern Status LastModified by Organization Details LastModified Time None Recorded Advance Directives Directive None Recorded Payers Insurance Date Sequence Insurance Name Policy Number Policy Vyas Covered Member ID Vyas Member ID Guarantor Name 12/26/2022 1 [facility] [id number] Roxy Alcantara [id number] Jimmodesta Quinton Notes Date Note Type Note Provider Name and Address Organization Details Recorded Time 10/27/2022 text/html Elder is a 52 yo male here today for Vasectomy Consultation. He and his desire no future children and he is interested in permanent sterilization via vasectomy. He denies any scrotal or testicular trauma. MILLICENT BOLTON MD [address] [place] [address], [phone], [facility] 10/27/2022 20:50:40 11/14/2022 text/html 52 yo WM who returns 2 weeks after vasectomy. He is doing great with no post-op problems. MILLICENT BOLTON MD [address] [place] [address], [phone], [facility] 11/15/2022 13:06:42
[2025-01-04 14:17] LABS: Hematocrit 46.3 % (42.0-52.0); Hemoglobin 15.7 g/dL (14.1-18.0); Mean Corpuscular HGB Conc 33.9 g/dL (31.8-35.4); Mean Corpuscular Hemoglobin 32.6 pg (27.0-31.2); Mean Corpuscular Volume 96.1 fl (80-94); Platelet Count 278 K/mm3 (142-424); Red Blood Count 4.82 M/mm3 (4.60-6.20); White Blood Count 5.8 K/mm3 (4.8-10.8)
[2025-01-04 14:44] LABS: Anion Gap 10.9 mEq/L (5-15); Blood Urea Nitrogen 7 mg/dl (9-20); Calcium 9.2 mg/dl (8.4-10.2); Carbon Dioxide 31 mmol/L (22.0-30.0); Chloride 102 mmol/L (98-107); Creatinine Clearance Estimated 116 mL/min (50-200); Creatinine,Serum 1.00 mg/dl (0.66-1.25); Estimated Glomerular Filt Rate 78 ml/min (>60); GFR (African American) 95 ML/MIN (>60); Glucose 98 mg/dl (74-100); Potassium 3.9 mmoL/L (3.5-5.1); Sodium 140 mmol/L (136-145)
[2025-01-04 15:44] LABS: Total Cells Counted 100
[2025-01-04 15:45] LABS: Anisocytosis 1+; Macrocytosis 1+; Poikilocytosis 1+; Polychromasia 1+; Tear Drop Cells 1+
== END 2025-01-04 23:59 | disposition home or self-care (01) ==
LOC: PREOP 13:20
PROVIDERS: PCP Nurse Practitioner; Visit Provider Student in an Organized Health Care Education/Training Program
DX: Z01.810 Encounter for preprocedural cardiovascular examination (principal); Z01.811 Encounter for preprocedural respiratory examination; Z01.812 Encounter for preprocedural laboratory examination; I45.19 Other right bundle-branch block; R94.31 Abnormal electrocardiogram [ECG] [EKG]
CPT/HCPCS: 71046; 80048; 85007; 85014; 85018; 85048; 85049; 93005

== ENCOUNTER 2025-01-10 06:05 | Day surgery (SDC) | payer OTHER, SELFPAY ==
[2025-01-04 14:49] VITALS: BMI 30.1
[2025-01-10] VITALS (8 sets, daily range): BP systolic 116–180; BP diastolic 70–100; PULSE 82–106; RESP 14–18; TEMP 36.1–36.8; O2SAT 92–100; BMI 30.1
[2025-01-10] MEDS: LACTATED RINGERS 1000ML 1,000 ML 25 ML IV (06:38)
--- NOTE | 2025-01-10 08:01 | P.PNANES_ITS ---
[facility] Disclaimer: The information contained in this section may have been updated after the patient was seen, as this information can be updated by other users. Medical History Deviated septum Explained to the patient he had a severe deviated septum to the left. Explained to the patient there is no guarantee that doing the septoplasty would help with snoring and apnea while sleeping. Explained to patient that the septoplasty would allow him to breathe better through his nose. Pt was told the risk such as bleeding, septal perforation and benefits following the surgery. Nasal turbinate hypertrophy Anxiety IFG (impaired fasting glucose) Psoriasis Snoring Bilateral lower extremity edema History of left heart catheterization (LHC) History of left heart catheterization (LHC) Sinus tachycardia Abnormal result of cardiovascular function study Abnormal stress test Neoplasm of uncertain behavior of right kidney Hyperlipidemia GERD (gastroesophageal reflux disease) Personal history of smoking ELENA (obstructive sleep apnea) Chest pain Surgical History Hx of inguinal hernia repair left Family History Father Aneurysm Other Family history of diabetes mellitus type II Family history of hyperlipidemia Family history of hypertension Social History (Updated 01/10/25 @ 06:20 by Yulisa Cobb RN) Smoking Status: Former smoker tobacco type: cigarettes packs per day: 1 alcohol intake: never substance use type: denies use current occupational status: employed Travel in the last 8 weeks?: Inside the [place] household members: family housing: house caffeine: Yes Have you lived/traveled outside US in past 30 days?: No Contact w/someone who lives/traveled outside US past 30 days?: No Exposure to someone with infectious disease in past 14 days?: No Do you have a fever (greater than 100.4 F or 38 C)?: No Have you tested positive for COVID-19?: No Exposed to someone with COVID-19 in past 14 days?: No Do you have a sore throat?: No Do you have a cough?: No Do you have any weakness?: No Are you experiencing any nausea/vomitting?: No Do you have any diarrhea?: No Are you experiencing any unusual bleeding?: No Do you have any muscle aches/pain?: No Do you have any abdominal pain?: No Are you experiencing loss of taste or smell?: No [facility] Anesthesia Checklist Patient Identification Patient Identification: Arm Band Structural Data Admitted From: Home Planned Operative Procedure/s: Nasal Septoplasty, Bilateral Turbinate Reduction Consent for Planned Operative Procedure(s) Verified: Yes Verified Documents: Surgical Consent and History and Physical NPO Status Verified Time NPO: 00:00 Additional verifications Anesthesia Reactions: No Airway Assessment Mallampati Score:: Class II C-Spine Mobility Assessed: Yes TMJ Mobility Assessed: Yes Dentition: Good Dentition Neurological Assessment Level of Consciousness: Awake, Alert and Appropriate Anesthesia Plan Anesthesia Risk discussed: Yes Anesthesia Plan: Verified ASA Class: II Anesthesia Type: General
[2025-01-10] MEDS: 0.9 % SODIUM CHLORIDE 500 ML 25 ML IV (08:25)
[2025-01-10] MEDS: OXYMETAZOLINE NASAL SPRAY 0.05% 15ML 15 ML NS (08:25)
[2025-01-10] MEDS: LIDOCAINE 1% W/EPI 1:100,000 20ML VIAL 20 ML (08:25)
--- NOTE | 2025-01-10 09:32 | EXP.OP.NOTE ---
Date of procedure: 01/10/25 Pre-op Diagnosis:: deviated septum inferior turbinate hypertrophy Post-op Diagnosis:: same Procedure performed:: septoplasty bilateral inferior turbinate reduction Surgeon:: Chip Lockhart MD Anesthesia: GETIsadora Estimated blood loss (mL): 10 Operative findings:: left deviated septum bilateral inferior turbinate hypertrophy Operative note:: The patient was brought to the OR in supine position. General anesthesia was induced. Patient was prepped and draped in usual fashion. Lidocaine with epinephrine 1:100,000 was injected into the patient's septum and heads of the inferior turbinate. I first started with the septoplasty portion of the procedure. The patient had a left both cartilaginous and enrique septal deviation. Hemitransfixion incision was made on the left side of the septum.? The mucosal flap was elevated off the cartilage and bone in the sub-pericondrial plane. The bony cartilaginous junction was disarticulated inferiorly. A postage stamp sized portion of cartilage was then removed from the posterior and inferior aspect of the cartilaginous septum, taking care to leave over a [id number]-[id number]-[id number]-half of cartilage both at the dorsal and caudal portions of the septum to support the nose. Fomon scissors were then used to make a releasing incision through the superior aspect of the bony septum and the deviated bony portions of the septum were then removed. I then came back inferiorly and elevated mucosa off the left deviated maxillary crest, and it was excised with the rongour. I then turned my attention towards the turbinates. Stab incision was made at the head of each inferior turbinate. The mucosa was dissected off the underlying bone. The turbinate shaver was then used to perform a submucosal resection. The turbinates were then outfractured. The patient's septum was then closed. The cartilage that had been removed was morsilized and replaced in the septal pocket. A 4-0 quilting stitch was used to reapproximate the mucosal flaps. Chromic was then used to close the hemitransfixion incision. Holley splints were then fashioned across the patient's septum and secured into place. The nose and mouth were suctioned out. They were then turned back over to anesthesia to be awoken and extubated. ? Condition: stable Disposition: PACU Complications:: none
--- NOTE | 2025-01-10 09:47 | P.PNANES_ITS ---
[facility] Anesthesia Record Part I Anesthesia Record I Intake, IV Amount: 1,200 Hydration: Adequate Estimated blood loss (mL): 10 Urine output (mL): 0 Blood Products used (#): none Blood Pressure: 116/80 SaO2: 92 Pulse Rate: 106 Airway Patency: Patent Respiratory Rate: 14 Temperature: 97.6 F Patient is:: Drowsy and Stable Stable to PACU at:: 09:40
--- NOTE | 2025-01-10 12:09 | EXP.ANES.II ---
[facility] Anesthesia Record Part II Anesthesia Record Part II Discharge Time: 10:00 Destination: Surgical Day Care (OP Surgery) PACU nurse assessment reviewed?: Yes Patient Condition:: Good Anesthesia Complications:: None Swallowing reflex intact?: Yes Airway Patency: Patent Cyanosis?: No Blood Pressure: 147/88 SaO2: 95 Respiratory Rate: 17 Pulse Rate: 92 Temperature: 98.2 F Mental Status: Alert & Oriented Pain level:: 0 Nausea and/or vomitting:: None Intake, IV Amount: 0 Hydration: Adequate
== END 2025-01-10 10:41 | disposition home or self-care (01) ==
PROVIDERS: PCP Nurse Practitioner; Visit Provider Student in an Organized Health Care Education/Training Program
PROC: (CPT 30520; principal; 2025-01-10 08:00)
DX: J34.2 Deviated nasal septum (principal); J34.3 Hypertrophy of nasal turbinates; F41.9 Anxiety disorder, unspecified; K21.9 Gastro-esophageal reflux disease without esophagitis; E78.5 Hyperlipidemia, unspecified; Z87.891 Personal history of nicotine dependence; Z85.528 Personal history of other malignant neoplasm of kidney; Z98.890 Other specified postprocedural states; Z79.899 Other long term (current) drug therapy
CPT/HCPCS: 30140; 30520; J2003; J2004; J2250; J2704; J3010; J7040; J7120

== ENCOUNTER 2025-02-07 10:23 | Outpatient (CLI) | payer OTHER, SELFPAY ==
--- OUTSIDE RECORDS SUMMARY | 2025-02-07 10:26 | XMS_ITS | Clinical Summary ---
Author Organization [facility] Address [facility] [place] [address] [place] [address] Phone Care Team Providers Care Production Supervisor Off Shift Name Role Phone Sandrita Arguello Primary Care Provider [phone] Allergies No known active allergies Medications methylPREDNISolo [...] age to complete this topic Insurance wally [address] CHOICE PLUS CHOICE PLUS Care Teams Production Supervisor Off Shift Relationship Specialty Start Date End Date Sandrita Arguello [address] [facility] [address] [facility] [address] PCP - General Family Medicine 10/06/14
--- OUTSIDE RECORDS SUMMARY | 2025-02-07 10:26 | XMS_ITS | Clinical Summary ---
Author Organization [facility] Address [address] [place] [address] Care Team Providers Care Building Construction Inspector Name Role Phone Berta Mar APOORVA Primary Care Provider [phone] Allergies No known active allergies Medications albuterol [...] of 3 - 19+ 3-dose series) 02/07/1991 CT Colonography 02/07/2017 Colonoscopy 02/07/2017 FIT-DNA 02/07/2017 FIT 02/07/2017 FOBT 02/07/2017 Sigmoidoscopy 02/07/2017 UKY-Colorectal Cancer Screening 02/07/2017 UKY-Pneumococcal Vaccine: 50 + Years (1 of 1 - PCV) 02/07/2022 UKY-Zoster Vaccines (1 of 2) 02/07/2022 [id number] Vaccine (4 - season) 2024 02/25/2022, 06/12/2020, [...] to complete this topic Insurance Care Teams Building Construction Inspector Relationship Specialty Start Date End Date Berta Mar APRN [address] [place] [address] PCP - General 01/11/24
--- OUTSIDE RECORDS SUMMARY | 2025-02-07 10:26 | XMS_ITS | Data Portability ---
Author Organization [place] - [facility] [place] [facility] Address [address] [facility] [address] [place] [address] Assessment No assessment recorded. Plan of Treatment Reminders Order Date Submit Date Provider Last Modified By Organization Details Last Modified Time Details Appointments None recorded. Lab None recorded. Referral None recorded. Procedures None recorded. Surgeries None recorded. Imaging None recorded. Medication Orders acetaminoph en 300 mg-codeine 30 mg tablet 2022 023 [facility], [address], [address], 14:44:54 Patient TargetsNo targets recorded. Patient Instructions Encounter Date Encounter Id Patient Instructions Last Modified By Organization Details Last Modified Time 10/27/2022 [id number] I discussed vasectomy in great detail with [...] Specim en Not Available [facility] [place], [address], 12/26/2022 11:57:43 12/27/1912/26/2022 sperm count , semin al fluid (post vasec priyanka) Unknown Analyte Absent Not Available [facility] [address] [place], [address], 12/26/2022 11:57:43 12/27/1912/26/2022 sperm count , semin al fluid (post vasec priyanka) Unknown Analyte Non-Mo tile Not Available [facility] [place], [address], 12/26/2022 11:57:43 Result Notes None recorded. Procedures Surgical History Date Name Laterality Status Provider Name and Address Organization Details Recorded Time 3 Vasectomy completed MILLICENT BOLTON MD [address] [place] [address], [phone], [facility] 10/31/2022 14:43:40 3 Vasectomy completed MILLICENT BOLTON MD [address] [place] [address], [phone], [facility] 11/15/2022 13:05:24 Hernia Repair completed MILLICENT BOLTON MD [address] [place] [address], [phone], [facility] 10/27/2022 20:48:46 Imaging Results None recorded. Procedure [...] Updated DateTime 10/27/2022 175.26 cm 27.3 kg/m2 91060.59 g Angelica Curry [facility] 10/27/2022 14:46:07 Date Recorded Body height Body mass index (BMI) Body weight Provider Name and Address Organization Details Last Updated DateTime 11/14/2022 175.26 cm 27.3 kg/m2 65535.59 g Angelicaalee Curry [facility] 11/14/2022 10:49:42 Social History Question Answer Notes LastModified by [employer] Details LastModified Time Tobacco Smoking Status Current Every Day Smoker Angelica Curry [facility] 10/27/2022 14:47:22 What Is Your Relationship Status? Is 38 G0. 28 Yo Son And 2 Grandchil dren. Information not available 10/27/2022 How Much Tobacco Do You Smoke? 1 PPD Information not available 10/27/2022 Sex: Unknown Functional Status Question Answer Note LastModified by [employer] Details LastModified Time What is your level of alcohol consumption? Occasional Information not available 10/27/2022 Are you currently employed? Yes Information not available 10/27/2022 What is your occupation? [employer] Information not available 10/27/2022 Mental Status None recorded. Family History Relationship Description Onset Age of this Age Resolved Age Notes LastModified by Organization Details LastModified Time [email or web address] Not available 2022 14:46:44 Paternal Grandfather Family history of malignant neoplasm [email or web address] Not available 2022 14:46:52 Medical History Condition Response Allergies/Hayfever Y Acid Reflux (GERD) Y Arthritis Y Kidney Stones Y Sleep Apnea Y High Cholesterol Y Past Encounters Encounter ID Performer Location Encounter Start Date Encounter Closed Date Diagnosis/Indication Diagnosis SNOMED-CT Code Diagnosis ICD10 Code Diagnosis IMO Codes Diagnosis Note [id number] [facility] [address] [facility] [place] [place] [address] 10/27/2022 12:47:27 10/27/2022 15:28:24 Male sterilization 929986145 Z30.2 [id number] MILLICENT BOLTON MD SURGERY SCHEDULE [address] [place] [phone] 10/31/2022 13:28:18 10/31/2022 13:31:02 Male sterilization 495620845 Z30.2 [id number] [facility] [address] [facility] [place] [place] [address] 11/14/2022 10:33:08 11/14/2022 12:26:13 Male sterilization 880227282 Z30.2 Looks great post-op Health Concerns Section Related Observation LastModified by Organization Detai ls LastModified Time None Recorded Concern Status LastModified by Organization Details LastModified Time None Recorded Advance Directives Directive None Recorded Payers Insurance Date Sequence Insurance Name Policy Number Policy Vyas Covered Member ID Vyas Member ID Guarantor Name 12/26/2022 1 [facility] [id number] Roxy Alcantara [id number] Jimmodesta Quinton Notes Date Note Type Note Provider Name and Address Organization Details Recorded Time 10/27/2022 text/html Elder is a 52 yo male here today for Vasectomy Consultation. He and his desire no future children and he is interested in permanent sterilization via vasectomy. He denies any scrotal or testicular trauma. MILLICENT BOLTON MD [address] [place] [address], [phone], [facility] 10/27/2022 20:50:40 11/14/2022 text/html 52 yo WM who returns 2 weeks after vasectomy. He is doing great with no post-op problems. MILLICENT BOLTON MD [address] [place] [address], [phone], [facility] 11/15/2022 13:06:42
== END 2025-02-07 23:59 | disposition home or self-care (01) ==
LOC: LAB 10:25
PROVIDERS: PCP Nurse Practitioner; Visit Provider Dermatology
DX: L40.0 Psoriasis vulgaris (principal)
CPT/HCPCS: 36415; 86480